=== PATIENT | male | born 1950 | race American Indian/Alaskan Native ===

== ENCOUNTER 2016-07-17 21:26 | Emergency (ER) | payer MEDICARE ==
[2016-07-18 00:20] VITALS: BP 129/89
--- NOTE | 2016-07-18 06:50 | Emergency Department Report ---
ED Lower Extremity HPI - General Chief Complaint: Extremity Injury, Lower Stated Complaint: FALL/LEFT ANKLE INJURY Time Seen by Provider: 07/18/16 04:58 Source: patient Mode of arrival: Ambulatory Limitations: Physical Limitation - History of Present Illness Initial Comments: 65-year-old male past medical history hypertension since with complaint of left foot and left ankle pain status post inversion injury while walking at home. Patient states that he stepped awkwardly on his left foot foot inverted and he experienced subsequent pain lateral aspect of his left foot and top of his ankle. Patient states that weightbearing on his left foot is very painful. Denies any other injuries. Patient states that he fell did not injure his head or any other body part was able to stand back up with pain in his left foot/ ankle. Patient ambulates with a cane. MD Complaint: foot injury Injury: Ankle: Left, Foot: Left Type of Injury: inversion Place: home Severity: moderate Severity scale (0 -10): 6 Worsens With: weight bearing Context: fall Associated Symptoms: swelling, able to partially bear weight - Related Data Previous Rx's Medication Instructions Recorded Last Taken Type Acetaminophen [Acetaminophen TAB] 500 mg PO Q6HR PRN #25 tablet 07/18/16 Unknown Rx Allergies Allergy/AdvReac Type Severity Reaction Status Date / Time phenytoin sodium Allergy Itching Verified 07/18/16 00:20 [From Dilantin] phenytoin sodium extended Allergy Itching Verified 07/18/16 00:20 [From Dilantin] ED Review of Systems ROS: Stated complaint: FALL/LEFT ANKLE INJURY Other details as noted in HPI Constitutional: denies: chills, fever Eyes: denies: eye pain, eye discharge, vision change ENT: denies: ear pain, throat pain Respiratory: denies: cough, shortness of breath, wheezing Cardiovascular: denies: chest pain, palpitations Endocrine: no symptoms reported Gastrointestinal: denies: abdominal pain, nausea, diarrhea Genitourinary: denies: urgency, dysuria Musculoskeletal: denies: back pain, joint swelling, arthralgia Skin: denies: rash, lesions Neurological: denies: headache, weakness, paresthesias Psychiatric: denies: anxiety, depression Hematological/Lymphatic: denies: easy bleeding, easy bruising ED Past Medical Hx - Past Medical History Previous Medical History?: Yes Hx Hypertension: Yes Hx Seizures: Yes - Surgical History Past Surgical History?: Yes Additional Surgical History: right kidney removed. hernia. right ankle - Medications Home Medications: Home Medications Medication Instructions Recorded Confirmed Last Taken Type Acetaminophen [Acetaminophen TAB] 500 mg PO Q6HR PRN #25 tablet 07/18/16 Unknown Rx ED Physical Exam - General Limitations: Physical Limitation General appearance: alert, in no apparent distress - Head Head exam: Present: atraumatic, normocephalic - Eye Eye exam: Present: normal appearance, PERRL, EOMI - ENT ENT exam: Present: mucous membranes moist - Neck Neck exam: Present: normal inspection - Respiratory Respiratory exam: Present: normal lung sounds bilaterally. Absent: respiratory distress - Cardiovascular Cardiovascular Exam: Present: regular rate, normal rhythm. Absent: systolic murmur, diastolic murmur, rubs, gallop - GI/Abdominal GI/Abdominal exam: Present: soft, normal bowel sounds - Rectal Rectal exam: Present: deferred - Extremities Exam Extremities exam: Present: normal inspection - Expanded Lower Extremity Exam Left Hip exam: Present: normal inspection, full ROM Upper Leg exam: Present: normal inspection, full ROM Knee exam: Present: normal inspection, full ROM Lower Leg exam: Present: normal inspection, full ROM Ankle exam: Present: normal inspection, full ROM Foot/Toe exam: Present: tenderness, swelling (mild tenderness at base of fifth/ lateral aspect of left foot and top of ankle) Neuro vascular tendon exam: Present: no vascular compromise Gait: Positive: observed and limited by pain, antalgic 1 - pain on palpation here. Dorsalis pedis and posterior tibial pulses intact , distal sensation intact - Back Exam Back exam: Present: normal inspection - Neurological Exam Neurological exam: Present: alert, oriented X3, CN II-XII intact, abnormal gait (patient limping on his left foot due to pain) - Psychiatric Psychiatric exam: Present: normal affect, normal mood - Skin Skin exam: Present: warm, dry, intact, normal color. Absent: rash ED Course Vital Signs 07/18/16 00:17 Temperature 97.9 F Pulse Rate 85 Respiratory 18 Rate Blood Pressure 129/89 O2 Sat by Pulse 100 Oximetry ED Lower Extremity MDM - Medical Decision Making A/P: Include sprain, foot sprain 1-I reviewed x-rays with Dr. Patten before discharge, no evidence of acute fracture on our observation of x-rays 2-Tylenol when necessary for pain 3-I wrapped patient's foot and Ramos wrap, placed him in ankle stirrup splint and orthopedic shoe for comfort and support. I recommended the patient that he be nonweightbearing for the next several days, at least 3-4 days on left foot then to begin bearing weight as tolerated. 4-I gave patient follow up with podiatry 5-pt states that he has canes as well as crutches at home to assist in ambulation. Critical care attestation.: If time is entered above; I have spent that time in minutes in the direct care of this critically ill patient, excluding procedure time. ED Disposition Clinical Impression: Ankle sprain Qualifiers: Encounter type: initial encounter Involved ligament of ankle: tibiofibular ligament Laterality: left Qualified Code(s): S93.432A - Sprain of tibiofibular ligament of left ankle, initial encounter Disposition: DISCHARGED TO HOME OR SELFCARE Is pt being admited?: No Does the pt Need Aspirin: No Condition: Stable Instructions: Ankle Sprain (ED), Foot Sprain (ED), RICE Therapy (ED), Ankle Stirrup Splint (ED) Prescriptions: Acetaminophen [Acetaminophen TAB] 500 mg PO Q6HR PRN #25 tablet PRN Reason: Pain Referrals: LEXI KIRKLAND MD [Primary Care Provider] - 3-5 Days JONES GANT DPM [Staff Physician] - 3-5 Days Time of Disposition: 06:50
--- NOTE | 2016-07-18 07:32 | XRay Report ---
LEFT ANKLE, 3 views: History: Left ankle pain after fall. Bone mineralization is normal. No acute osseous injury or joint pathology is identified. There is diffuse soft tissue swelling or edema. IMPRESSION: Nonspecific soft tissue swelling. No acute osseous findings detected.
--- NOTE | 2016-07-18 07:37 | XRay Report ---
FINAL REPORT PROCEDURE: XR FOOT 3 LT TECHNIQUE: AP, lateral, and oblique views HISTORY: midfoot pain ? fracture, 5th metatarsal pain COMPARISON: None FINDINGS: There is no evident fracture or dislocation. Joint spaces are largely maintained. There is no plantar calcaneal spur or radiopaque foreign body. IMPRESSION: No evident fracture. No dislocation. If symptoms persist, consider MRI for further evaluation particularly to exclude nondisplaced microfracture/repetitive stress injury.
== END 2016-07-18 07:04 | disposition home or self-care (01) ==
LOC: ED 21:26
DX: S93.432A Sprain of tibiofibular ligament of left ankle, initial encounter (principal); I10 Essential (primary) hypertension; R56.9 Unspecified convulsions; Z88.8 Allergy status to other drugs, medicaments and biological substances; Z98.890 Other specified postprocedural states; W19.XXXA Unspecified fall, initial encounter; Y93.01 Activity, walking, marching and hiking; Y92.009 Unspecified place in unspecified non-institutional (private) residence as the place of occurrence of the external cause; Y99.9 Unspecified external cause status